=== PATIENT | male | born 1985 | race Caucasian/White ===

== ENCOUNTER 2017-04-13 08:56 | Emergency (ER) | payer OTHER ==
[~2017-04-13] VITALS: Ht 180.3 cm; Wt 70.3 kg
[~2017-04-13 08:56] MED LIST: NOHOMEMEDICATIONS
[2017-04-13] MEDS ORDERED: CLEOCIN HCL150 MG PO (10:03)
[2017-04-13] MEDS ORDERED: ZOFRAN 4 MG ORAL4 MG PO (10:03)
[2017-04-13] MEDS ORDERED: HYDROCODONE-IB1 EACH PO (10:03)
[2017-04-13 10:12] VITALS: BP 103/62
== END 2017-04-13 10:13 | disposition home or self-care (01) ==
LOC: M.ERS 08:56
DX: K02.9 Dental caries, unspecified (principal); F17.200 Nicotine dependence, unspecified, uncomplicated; Z88.6 Allergy status to analgesic agent; Z88.0 Allergy status to penicillin

== ENCOUNTER 2017-11-14 11:10 | Emergency (ER) | payer OTHER ==
[~2017-11-14] VITALS: Ht 177.8 cm; Wt 70.3 kg
[~2017-11-14 11:10] MED LIST changes: +CLEOCIN HCL150 MG PO; +HYDROCODONE-IB1 EACH PO; +ZOFRAN 4 MG ORAL4 MG PO
[2017-11-14] MEDS ORDERED: IBUPROFEN 600600 M1 PO (12:35)
[2017-11-14] MEDS ORDERED: NABUMETONE 750750 M1 PO (12:40)
[2017-11-14] MEDS ORDERED: ROBAXIN 750 MG750 M1 PO (12:40)
[2017-11-14 12:47] VITALS: BP 114/61
== END 2017-11-14 12:50 | disposition home or self-care (01) ==
LOC: M.ERS 11:10
DX: S43.491A Other sprain of right shoulder joint, initial encounter (principal); S16.1XXA Strain of muscle, fascia and tendon at neck level, initial encounter; Z86.19 Personal history of other infectious and parasitic diseases; Z88.6 Allergy status to analgesic agent; Z88.0 Allergy status to penicillin; V29.49XA Motorcycle driver injured in collision with other motor vehicles in traffic accident, initial encounter; Y93.89 Activity, other specified; Y92.89 Other specified places as the place of occurrence of the external cause; Y99.8 Other external cause status

== ENCOUNTER 2017-12-27 11:48 | Emergency (ER) | payer OTHER ==
[~2017-12-27] VITALS: Ht 180.3 cm; Wt 72.6 kg
[~2017-12-27 11:48] MED LIST changes: +IBUPROFEN 600600 M1 PO; +NABUMETONE 750750 M1 PO; +ROBAXIN 750 MG750 M1 PO
[2017-12-27] MEDS ORDERED: MOXIFLOXACIN3 ML OPHTHALMIC (12:33)
[2017-12-27 12:46] VITALS: BP 112/61
== END 2017-12-27 12:46 | disposition home or self-care (01) ==
LOC: M.ERS 11:48
DX: T15.92XA Foreign body on external eye, part unspecified, left eye, initial encounter (principal); X58.XXXA Exposure to other specified factors, initial encounter; Y93.89 Activity, other specified; Y92.89 Other specified places as the place of occurrence of the external cause; Y99.8 Other external cause status